=== PATIENT | male | born 1995 | race Caucasian/White ===

== ENCOUNTER 2018-02-03 12:23 | Emergency (ER) | payer SELFPAY ==
[~2018-02-03] VITALS: Ht 180.3 cm; Wt 75.0 kg
[2018-02-03] MEDS ORDERED: IBUPROFEN 600MG TABLET PO ONE (14:45)
[2018-02-03 14:47] VITALS: BP 123/50
== END 2018-02-03 16:15 | disposition home or self-care (01) ==
LOC: ER 12:23
DX: M25.512 Pain in left shoulder (principal); V00.131A Fall from skateboard, initial encounter; Y93.51 Activity, roller skating (inline) and skateboarding; Y92.89 Other specified places as the place of occurrence of the external cause
CPT/HCPCS: 73030; 99284